=== PATIENT | male | born 1980 | race Hispanic/Latino ===

== ENCOUNTER 2016-11-03 06:19 | Emergency (ER) | payer SELFPAY ==
[2016-11-03] MEDS ORDERED: Sodium Chloride 0.9% 1,000 ML ONE (06:50)
[2016-11-03] MEDS ORDERED: Ondansetron HCl/PF 4 MG/2 ML Vial ONE (06:50)
[2016-11-03 07:00] LABS: #Basophils 0.1 thou/uL (0.0-0.2); #Eosinphils 0.3 thou/uL (0.0-0.7); #Lymphocytes 2.8 thou/uL (1.20-3.40); #Monocytes 0.9 thou/uL (0.11-0.59); #Neutrophils 11.3 thou/uL (1.40-6.50); %Basophils 0.9 % (0.0-1.0); %Eosinophils 1.8 % (0.0-10.0); %Lymphocytes 18.4 % (21.0-51.0); %Neutrophils 72.9 % (42.0-75.0); Hemoglobin 17.1 g/dL (14.0-18.0); Mean Corpuscular HGB CONC 33.7 g/dL (32.0-36.0); Mean Corpuscular Hemoglobin 28.9 pg (27.0-31.0); Mean Corpuscular Volume 85.7 fl (80.0-94.0); Mean Platelet Volume 7.7 fL (7.4-10.4); Platelet Count 181 thou/uL (130-400); RBC Distribution Width 11.4 % (11.5-14.5); Red Blood Cell (RBC) Count 5.93 mill/uL (4.70-6.10); White Blood Cell (WBC) Count 15.4 thou/uL (4.8-10.8)
[2016-11-03 07:17] LABS: ALT (SGPT) 89 U/L (8-55); AST (SGOT) 37 U/L (5-34); Albumin 4.6 g/dL (3.5-5.0); Alkaline Phosphatase 69 U/L (40-150); Anion Gap 15 mmol/L (10-20); BUN (Urea Nitrogen) 18 mg/dL (8.9-20.6); Bilirubin, Total 1.6 mg/dL (0.2-1.2); Calc. Creatinine Clearance 0 mL/min (70-130); Calcium 9.4 mg/dL (7.8-10.44); Carbon Dioxide 20 mmol/L (22-29); Chloride 106 mmol/L (98-107); Estimated GFR-MDRD Greater than 90; Globulin 3.2 g/dL (2.4-3.5); Glucose 262 mg/dL (70-105); Potassium 3.6 mmol/L (3.5-5.1); Protein, Total 7.8 g/dL (6.0-8.3); Sodium 137 mmol/L (136-145)
[2016-11-03 07:46] LABS: Blood, Urine Negative (Negative); Clarity Clear (Clear); Glucose, Urine (Dipstick) >=1000 mg/dL (Negative); Leukocyte Negative (Negative); Nitrite Negative (Negative); Protein, Urine (Dipstick) > or equal to 300 mg/dL (Neg-Trace); Urobilinogen 0.2 mg/dL (0.2-1.0)
[2016-11-03 07:48] LABS: Bilirubin Negative (Negative); Icto Negative (Negative); Specific Gravity, Urine 1.045 (1.002-1.036)
[2016-11-03 07:51] LABS: Bacteria/HPF Rare-Few HPF (None Seen); Crystals/HPF RARE CA OXALATE HPF (Negative); RBC/HPF None Seen HPF (0-3); Squamous Epithelial None Seen HPF (0-3); WBC/HPF 0-3 HPF (0-3)
[2016-11-03 07:52] LABS: Hyaline Casts/LPF 0-3 HYALINE CAST LPF (0-3 Hyaline); Other Casts/LPF 0-3 FINELY GRAN LPF (0-3 Hyaline)
== END 2016-11-03 08:18 | disposition home or self-care (01) ==
LOC: NAV ERS 06:19
DX: K52.9 Noninfective gastroenteritis and colitis, unspecified (principal); E11.9 Type 2 diabetes mellitus without complications; F17.210 Nicotine dependence, cigarettes, uncomplicated; Z79.84 Long term (current) use of oral hypoglycemic drugs
CPT/HCPCS: 80053; 81003; 81015; 83690; 85025; 96361; 96374; J2405; J7050

== ENCOUNTER 2021-06-23 12:57 | Emergency (ER) | payer BC, SELFPAY | END 2021-06-23 14:08 | disposition home or self-care (01) | LOC: NAV ERS 12:57 | DX: R50.9 Fever, unspecified (principal); J02.9 Acute pharyngitis, unspecified; R09.81 Nasal congestion; R19.7 Diarrhea, unspecified; R51.9 Headache, unspecified; I10 Essential (primary) hypertension; E11.9 Type 2 diabetes mellitus without complications; E78.5 Hyperlipidemia, unspecified; F17.210 Nicotine dependence, cigarettes, uncomplicated; Z20.822 Contact with and (suspected) exposure to COVID-19; Z79.84 Long term (current) use of oral hypoglycemic drugs | CPT/HCPCS: 87804; 99406; U0003; U0005 ==

== ENCOUNTER 2022-05-18 23:04 | Emergency (ER) | payer BC ==
[2022-05-18] MEDS ORDERED: Fluorescein Opthalmic Strip ONE (23:28)
[2022-05-18] MEDS ORDERED: Tetracaine 0.5% PF 4 ML BOT ONE (23:29)
[2022-05-18] MEDS ORDERED: traMADol HCl 50 MG TAB ONE (23:59)
== END 2022-05-19 00:45 | disposition home or self-care (01) ==
LOC: NAV ERS 23:04
DX: H18.821 Corneal disorder due to contact lens, right eye (principal); E11.9 Type 2 diabetes mellitus without complications; E78.00 Pure hypercholesterolemia, unspecified; I10 Essential (primary) hypertension; F17.210 Nicotine dependence, cigarettes, uncomplicated; Z23 Encounter for immunization; Z79.84 Long term (current) use of oral hypoglycemic drugs
CPT/HCPCS: 90471

== ENCOUNTER 2023-09-10 01:51 | Emergency (ER) | payer BC ==
[2023-09-10] MEDS ORDERED: Ondansetron ODT 4 MG TAB ONE (02:20)
[2023-09-10] MEDS ORDERED: HYDROmorphone 0.5 MG/0.5 ML SYRINGE ONE (02:20)
== END 2023-09-10 04:12 | disposition home or self-care (01) ==
LOC: NAV ERS 01:51
DX: S39.012A Strain of muscle, fascia and tendon of lower back, initial encounter (principal); M54.17 Radiculopathy, lumbosacral region; F17.210 Nicotine dependence, cigarettes, uncomplicated; I10 Essential (primary) hypertension; E11.9 Type 2 diabetes mellitus without complications; Z79.84 Long term (current) use of oral hypoglycemic drugs
CPT/HCPCS: 72131; 96372; J1170; Q0162

== ENCOUNTER 2024-07-04 09:26 | Emergency (ER) | payer BC ==
[2024-07-04] MEDS ORDERED: Tetracaine 0.5% PF 4 ML BOT ONE (09:41)
[2024-07-04] MEDS ORDERED: Fluorescein Opthalmic Strip ONE (09:41)
== END 2024-07-04 10:15 | disposition home or self-care (01) ==
LOC: NAV ERS 09:26
DX: S05.02XA Injury of conjunctiva and corneal abrasion without foreign body, left eye, initial encounter (principal); H10.9 Unspecified conjunctivitis; E11.9 Type 2 diabetes mellitus without complications; E78.5 Hyperlipidemia, unspecified; I10 Essential (primary) hypertension; Z87.891 Personal history of nicotine dependence; Z79.84 Long term (current) use of oral hypoglycemic drugs; Z79.899 Other long term (current) drug therapy; X58.XXXA Exposure to other specified factors, initial encounter
CPT/HCPCS: 99283